=== PATIENT | female | born 1995 | race African-American/Black ===

== ENCOUNTER 2016-11-13 12:48 | Emergency (ER) | payer MEDICAID, OTHER ==
[~2016-11-13] VITALS: Ht 170.2 cm; Wt 68.0 kg
[2016-11-13 12:50] VITALS: BP 136/90; PULSE 97; RESP 15; TEMP 98.2; O2SAT 98
--- NOTE | 2016-11-13 14:22 | PD ---
HPI . right sided pain x 1 day Chief Complaint: Flank/Kidney Pain Time Seen by Provider: 14:17 Travel History International Travel<30 days: No Contact w/Intl Traveler<30days: No Traveled to known affect area: No History of Present Illness HPI 20-year-old female witha past medical history here with complaints of right sided pain for 1 day. Patient tells me that she visited somebody and had to sleep in a chair and ever since that her right side is been hurting. She reports that she's had this past and was seen at a hospital in [place] and told she had muscle strain and treated with muscle relaxers, anti-inflammatory and some type of pain patch. Her symptoms resolved and she spent the night sleeping in some type of recliner/couch and now the pain is back. He tells me that she would like to have her kidney checked and she thinks this is the problem. Pain is only present with movement that affects that side of her body. She denies any urinary symptoms, but thinks she may be urinating more than usual. She denies any fever or chills. She has no other complaints. She also denies any chance of and is currently on her menstrual cycle. [facility] Past Medical History Medical History: Denies Significant Hx ?: Not LMP: 11/13/16 Social History Alcohol Use: No Tobacco Use: No Substance Use: No Allergies-Medications (Allergen,Severity, Reaction): Coded Allergies: No Known Allergies (Unverified , 11/13/16) Reported Meds & Prescriptions Reported Meds & Active Scripts Active Ibuprofen 800 Mg Tab 800 Mg PO TID Ciprofloxacin (Ciprofloxacin HCl) 500 Mg Tab 500 Mg PO BID Reported [asthma meds prn ] Review of Systems General / Constitutional: No: Fever Eyes: No: Visual changes HENT: No: Headaches Cardiovascular: No: Chest Pain or Discomfort Respiratory: No: Shortness of Breath Gastrointestinal: No: Abdominal Pain Genitourinary: Positive: Flank Pain (right), No: Dysuria Musculoskeletal: No: Pain Skin: No Rash Neurologic: No: Weakness Psychiatric: No: Depression Endocrine: No: Polydipsia Hematologic/Lymphatic: No: Easy Bruising Physical Exam Narrative GENERAL: AAO x 3, no acute distress, Well-nourished, well-developed patient. SKIN: Warm and dry. No visible rashes or bruising. Entire abdomen visualized there is no bruising or discoloration HEAD: Normocephalic and atraumatic. EYES: No scleral icterus. No injection or drainage. EOM intact, PERRLA ENT: No nasal drainage noted. Mucous membranes pink. Airway patent. NECK: Supple, trachea midline. No JVD. CARDIOVASCULAR: Regular rate and rhythm without murmurs, gallops, or rubs. RESPIRATORY: Breath sounds equal bilaterally. No accessory muscle use. No rhonchi or rales. GASTROINTESTINAL: Abdomen soft, non-tender, nondistended. No Huston sign, no McBurney's point tenderness, no pain with palpation to bilateral flank EXTREMITIES: No cyanosis or edema. BACK: Nontender without obvious deformity. No CVA tenderness. NEURO: CN II-12 intact, air transport professionals strength normal b/l, UE and LE 5/5, no focal deficits PSYCH: AAO x 3, normal affect. Data Data Last Documented VS Vital Signs Date Time Temp Pulse Resp B/P Pulse Ox O2 Delivery O2 Flow Rate FiO2 11/13/16 12:50 98.2 97 15 136/90 98 Orders Urinalysis - C+S If Indicated (11/13/16 14:21) Urine Culture (11/13/16 14:30) Labs Laboratory Tests Test 11/13/16 14:30 Urine Color YELLOW Urine Turbidity CLEAR Urine pH 5.5 Urine Specific [place] 1.018 Urine Protein TRACE mg/dL Urine Glucose (UA) NEG mg/dL Urine Ketones NEG mg/dL Urine Occult Blood MOD Urine Nitrite NEG Urine Bilirubin NEG Urine Urobilinogen LESS THAN 2.0 MG/DL Urine Leukocyte Esterase SMALL Urine RBC 11 /hpf Urine WBC 12 /hpf Urine WBC Clumps OCC Urine Squamous Epithelial 1 /hpf Cells Urine Hyaline Casts 7 /lpf Urine Granular Casts 3 /lpf Urine Mucus FEW /lpf Microscopic Urinalysis Comment CULTURE INDICATED MDM Medical Decision Making Medical Screen Exam Complete: Yes Emergency Medical Condition: Yes Medical Record Reviewed: Yes Differential Diagnosis UTI, muscle strain, pyelonephritis Narrative Course 20-year-old female here with complaints of right sided pain. On examination there are no gross abnormalities. I will check a urinalysis to rule out any type of urinary tract infection. I do not suspect any pyelonephritis or nephrolithiasis. Her pain seems to be a consequence of sleeping in a recliner from an awkward position. Laboratory Tests Test 11/13/16 14:30 Urine Color YELLOW Urine Turbidity CLEAR Urine pH 5.5 Urine Specific [place] 1.018 Urine Protein TRACE mg/dL Urine Glucose (UA) NEG mg/dL Urine Ketones NEG mg/dL Urine Occult Blood MOD Urine Nitrite NEG Urine Bilirubin NEG Urine Urobilinogen LESS THAN 2.0 MG/DL Urine Leukocyte Esterase SMALL Urine RBC 11 /hpf Urine WBC 12 /hpf Urine WBC Clumps OCC Urine Squamous Epithelial 1 /hpf Cells Urine Hyaline Casts 7 /lpf Urine Granular Casts 3 /lpf Urine Mucus FEW /lpf Microscopic Urinalysis Comment CULTURE INDICATED As noted, patient is on her menstrual cycle. It does appear that she may have a urinary tract infection. Cipro provided for this, which will also cover pyelonephritis. I will also give her some ibuprofen for her aches and pains. I advise follow-up with her primary care provider. Return to the emergency department if symptoms return or worsen.. Patient verbalized understanding of instructions, questions were answered, and thanked me for their care. I advised them if their condition worsens, please return to the nearest emergency room for further care. Diagnosis Primary Impression: Urinary tract infection Qualified Code: N30.01 - Acute cystitis with hematuria Additional Impression: Muscle strain Patient Instructions: General Instructions Additional Instructions: Please return to emergency department if your symptoms return or worsen. Follow up with your primary care provider. Take medications as prescribed. Med/Other Pt SpecificInfo: Prescription(s) given Scripts Ibuprofen 800 Mg [id number] Mg PO TID #21 TAB Prov:Kingsley Andrews MD 11/13/16 Ciprofloxacin 500 Mg [id number] Mg PO BID #14 TAB Ref 0 Prov:Kingsley Andrews MD 11/13/16 Disposition: DISCHARGE HOME Condition: Stable Whitney Greenwood Nov 13, 2016 14:22 Whitney Greenwood Nov 13, 2016 14:22
[2016-11-13] MEDS ORDERED: [UNRECOGNIZED DRUG - OTHER] (14:30)
[2016-11-13 15:17] LABS: BLOOD, URINE MOD (NEG); COMMENT (UR) CULTURE INDICATED; CULTURE IF INDICATED CULTURE INDICATED; GLUCOSE,URINE NEG (NEG); GRANULAR CAST, URINE 3 /lpf; HYALINE CAST, URINE 7 /lpf (RARE); KETONE, URINE NEG (NEG); MUCUS URINE FEW /lpf (OCC); NITRITE,URINE NEG (NEG); PH, URINE 5.5 (5.0-8.5); SQUAMOUS EPITHELIAL CELL URINE 1 /hpf (0-5); URINE COLOR YELLOW (YELLW/STRAW)
[2016-11-13] MEDS ORDERED: CIPR500T2 PO (15:26)
[2016-11-13] MEDS ORDERED: IBUP800T23 PO (15:26)
== END 2016-11-13 15:34 | disposition home or self-care (01) ==
LOC: NEPD 12:48
DX: N30.01 Acute cystitis with hematuria (principal)
CPT/HCPCS: 81001; 86403; 87086; 99283